=== PATIENT | male | born 1980 | race Caucasian/White ===

== ENCOUNTER 2016-07-14 11:25 | Emergency (ER) | payer OTHER ==
[~2016-07-14] VITALS: Ht 190.5 cm; Wt 113.3 kg
[2016-07-14] MEDS ORDERED: ZYRTEC10 M2 PO (12:28)
[2016-07-14 14:37] VITALS: BP 139/89
== END 2016-07-14 14:37 | disposition home or self-care (01) ==
LOC: EME 11:25
DX: S31.110A Laceration without foreign body of abdominal wall, right upper quadrant without penetration into peritoneal cavity, initial encounter (principal); S30.811A Abrasion of abdominal wall, initial encounter; W29.3XXA Contact with powered garden and outdoor hand tools and machinery, initial encounter; Y99.0 Civilian activity done for income or pay; Z23 Encounter for immunization
CPT/HCPCS: 99281; 99284